=== PATIENT | male | born 1990 | race Two or more races ===

== ENCOUNTER 2022-12-06 14:05 | Emergency (ER) | payer OTHER ==
[~2022-12-06] VITALS: Ht 190.5 cm; Wt 81.8 kg
[2022-12-06 14:28] VITALS: BP 132/80
[2022-12-06] MEDS ORDERED: normal saline 1000ML IV soln IVB ONE (15:15)
[2022-12-06] MEDS ORDERED: ringers solution, lactated 1000ml IV soln IV ONE (16:00)
[2022-12-06] MEDS ORDERED: ketorolac trometh. 30mg/ml inj. IV ONE (16:00)
== END 2022-12-06 16:49 | disposition home or self-care (01) ==
LOC: ER 14:06
DX: T67.5XXA Heat exhaustion, unspecified, initial encounter (principal); X58.XXXA Exposure to other specified factors, initial encounter; Y93.89 Activity, other specified; Y92.89 Other specified places as the place of occurrence of the external cause; Y99.8 Other external cause status
CPT/HCPCS: 96361; 96374; 99283; J1885; J7030; J7120